=== PATIENT | female | born 1985 | race Caucasian/White ===

== ENCOUNTER 2022-02-10 03:02 | Emergency (ER) | payer OTHER ==
[~2022-02-10] VITALS: Ht 162.6 cm; Wt 77.1 kg
[2022-02-10 03:13] VITALS: BP 127/75
== END 2022-02-10 03:54 ==
LOC: ER 03:07
DX: Z02.89 Encounter for other administrative examinations (principal); R05.9 Cough, unspecified; Z20.822 Contact with and (suspected) exposure to COVID-19
CPT/HCPCS: 99283; 87426; C9803